=== PATIENT | male | born 1985 | race Caucasian/White ===

== ENCOUNTER 2016-05-14 19:16 | Emergency (ER) | payer SELFPAY ==
[2016-05-14 19:34] VITALS: BP 134/85; PULSE 88; RESP 24; TEMP 100.1; O2SAT 96
[2016-05-14] MEDS ORDERED: AZITHROMYCIN 250 MG TAB PO ONE (19:47)
[2016-05-14] MEDS ORDERED: BENZONATATE 200 MG SGL PO PRN (19:47)
[2016-05-14] MEDS ORDERED: IBUPROFEN 600 MG TAB PO ONE (19:47)
[2016-05-14] MEDS ORDERED: IBUPROFEN 600 MG TAB ONE (19:52)
[2016-05-14] MEDS ORDERED: AZITHROMYCIN 250 MG TAB ONE (19:52)
== END 2016-05-14 20:00 | disposition home or self-care (01) | DRG 203 ==
LOC: ED 19:16
DX: J40 Bronchitis, not specified as acute or chronic (principal); Z72.0 Tobacco use
CPT/HCPCS: 99282; 99284

== ENCOUNTER 2016-09-08 23:16 | Emergency (ER) | payer MEDICAID ==
[2016-09-08 23:27] VITALS: RESP 16; TEMP 97.2
[2016-09-08] MEDS ORDERED: CYCLOBENZAPRINE 10 MG TAB PO ONE (23:55)
[2016-09-09] MEDS ORDERED: CYCLOBENZAPRINE 10 MG TAB ONE
[2016-09-09 00:31] VITALS: BP 121/76; PULSE 70; O2SAT 96
== END 2016-09-09 00:15 | disposition home or self-care (01) | DRG 552 ==
LOC: ED 23:16
DX: S13.9XXA Sprain of joints and ligaments of unspecified parts of neck, initial encounter (principal)
CPT/HCPCS: 99282; 99283

== ENCOUNTER 2017-07-11 20:26 | Emergency (ER) | payer MEDICAID, OTHER ==
[2017-07-11 20:49] VITALS: RESP 20; TEMP 97.7
[2017-07-11] MEDS ORDERED: ACETAMINOPHEN 325 MG PO ONE (21:00)
[2017-07-11] MEDS ORDERED: ACETAMINOPHEN 325 MG ONE (21:45)
[2017-07-11 22:05] VITALS: BP 129/77; PULSE 64; O2SAT 97
== END 2017-07-11 22:00 | disposition home or self-care (01) ==
LOC: ED 20:26
DX: S09.8XXA Other specified injuries of head, initial encounter (principal); S16.1XXA Strain of muscle, fascia and tendon at neck level, initial encounter; W00.1XXA Fall from stairs and steps due to ice and snow, initial encounter
CPT/HCPCS: 70450; 72125; 99282; 99284

== ENCOUNTER 2017-11-08 19:23 | Emergency (ER) | payer OTHER ==
[2017-11-08 19:41] VITALS: BP 125/73; PULSE 68; RESP 25; TEMP 97; O2SAT 96
[2017-11-08] MEDS ORDERED: LIDOCAINE HCL 1% MDV 50 ML SOL SC ONE (19:41)
[2017-11-08] MEDS ORDERED: LIDOCAINE HCL 1% MPF 30 SOL ONE (19:43)
[2017-11-08] MEDS ORDERED: CEPHALEXIN 250 MG/5 ML BOTTLE PO ONE (19:52)
[2017-11-08] MEDS ORDERED: CEPHALEXIN 250 MG/5 ML BOTTLE ONE (19:53)
== END 2017-11-08 20:10 | disposition home or self-care (01) ==
LOC: ED 19:23
DX: S51.841A Puncture wound with foreign body of right forearm, initial encounter (principal)
CPT/HCPCS: 99282; 99283; A9270-GY; J2001

== ENCOUNTER 2018-02-19 21:01 | Emergency (ER) | payer OTHER ==
[2018-02-19 21:02] VITALS: O2SAT 96
== END 2018-02-19 22:17 | disposition home or self-care (01) ==
LOC: ED 21:01
DX: H00.012 Hordeolum externum right lower eyelid (principal)
CPT/HCPCS: 99282

== ENCOUNTER 2018-05-29 19:47 | Emergency (ER) | payer OTHER ==
[2018-05-29 20:02] VITALS: BP 133/78; PULSE 86; RESP 16; TEMP 98.1; O2SAT 99
[2018-05-29] MEDS ORDERED: KETOROLAC TROMETHAMINE 30 MG/ML SOL ONE (20:03)
[2018-05-29] MEDS ORDERED: KETOROLAC TROMETHAMINE 30 MG/ML SOL IM ONE (20:03)
== END 2018-05-29 20:20 | disposition home or self-care (01) | DRG 552 ==
LOC: ED 19:47
DX: S16.1XXA Strain of muscle, fascia and tendon at neck level, initial encounter (principal)
CPT/HCPCS: 96372; 99282; J1885

== ENCOUNTER 2018-06-15 14:36 | Emergency (ER) | payer OTHER ==
[2018-06-15 15:00] VITALS: BP 129/81; PULSE 79; RESP 16; TEMP 97.3; O2SAT 98
== END 2018-06-15 16:58 | disposition home or self-care (01) | DRG 552 ==
LOC: ED 14:36
DX: M54.2 Cervicalgia (principal); M54.89 Other dorsalgia; M25.512 Pain in left shoulder; M25.511 Pain in right shoulder
CPT/HCPCS: 72040; 73010; 99282; 99283